=== PATIENT | female | born 1970 | race Caucasian/White ===

== ENCOUNTER 2016-04-16 16:20 | Emergency (ER) | payer MEDICARE | END 2016-04-16 19:18 | disposition home or self-care (01) | LOC: ER 16:20 | DX: S20.112A Abrasion of breast, left breast, initial encounter (principal); N61.0 Mastitis without abscess; L08.9 Local infection of the skin and subcutaneous tissue, unspecified; E11.9 Type 2 diabetes mellitus without complications; F31.9 Bipolar disorder, unspecified; Z86.14 Personal history of Methicillin resistant Staphylococcus aureus infection; F17.210 Nicotine dependence, cigarettes, uncomplicated; Z79.899 Other long term (current) drug therapy | CPT/HCPCS: 99282 ==

== ENCOUNTER 2016-04-28 17:12 | Emergency (ER) | payer MEDICARE ==
[2016-04-28 17:42] LABS: BASO % 0.4 % (0.1-1.2); EOS # 0.2 10_X3_uL (0.0-0.4); GRAN # 4.4 10_X3_uL (1.6-6.1); GRAN % 38.7 % (34.0-71.1); HEMATOCRIT 42.2 % (34-45); HEMOGLOBIN 14.1 g/dL (11.2-15.7); LYMPH # 5.9 10_X3_uL (1.2-3.7); LYMPH % 52.3 % (19.3-51.7); MEAN CORPUSCULAR HGB CONC 33.4 g/dL (32.0-36.0); MEAN CORPUSCULAR VOLUME 95.9 fL (79-95); MEAN PLATELET VOLUME 9.8 fl (7.5-11.5); MONO # 0.8 10_X3_uL (0.2-0.9); MONO % 6.6 % (4.7-12.5); PLATELET COUNT 336 x10_3/uL (182-369); RED CELL DISTRIBUTION WIDTH 12.5 % (11.7-14.4); WHITE BLOOD COUNT 11.3 x10_3/uL (4.0-10.0)
[2016-04-28 18:01] LABS: ALBUMIN 3.7 gm/dL (3.4-5.0); ALKALINE PHOSPHATASE 51 U/L (50-136); ALT/SGPT 26 U/L (3.5-33.9); AST/SGOT 17 U/L (7.04-26.96); BLOOD UREA NITROGEN 6 mg/dL (7-18); CALCIUM 8.9 mg/dL (8.7-10.7); CARBON DIOXIDE 23 mmol/L (21-32); CREATINE KINASE 35 U/L (21-215); CREATININE < 0.5 mg/dL (0.6-1.3); GLUCOSE,RANDOM 154 mg/dL (70-99); POTASSIUM 4.3 mmol/L (3.5-5.1); SODIUM 137 mmol/L (136-145); TOTAL PROTEIN 6.9 gm/dL (6.4-8.2)
[2016-04-28 18:11] LABS: BILIRUBIN,TOTAL < 0.15 mg/dL (0.0-1.0)
== END 2016-04-28 19:20 | disposition home or self-care (01) ==
LOC: ER 17:12
PROVIDERS: Internal Medicine
DX: R07.89 Other chest pain (principal); F41.9 Anxiety disorder, unspecified; F32.9 Major depressive disorder, single episode, unspecified; I34.1 Nonrheumatic mitral (valve) prolapse; Z79.899 Other long term (current) drug therapy
CPT/HCPCS: 36415; 71010; 80053; 82550; 82553; 85025; 93005; 96374; 99283-25

== ENCOUNTER 2016-05-21 17:18 | Emergency (ER) | payer MEDICARE | END 2016-05-21 19:21 | disposition home or self-care (01) | LOC: ER 17:18 | DX: F41.9 Anxiety disorder, unspecified (principal); F20.9 Schizophrenia, unspecified; E11.9 Type 2 diabetes mellitus without complications; F31.9 Bipolar disorder, unspecified; F17.210 Nicotine dependence, cigarettes, uncomplicated; Z79.84 Long term (current) use of oral hypoglycemic drugs; Z79.899 Other long term (current) drug therapy | CPT/HCPCS: 99282 ==

== ENCOUNTER 2016-06-18 19:09 | Emergency (ER) | payer MEDICARE ==
[2016-06-18 19:38] LABS: BASO % 0.1 % (0.1-1.2); EOS # 0.2 10_X3_uL (0.0-0.4); EOS % 1.7 % (0.7-5.8); GRAN # 4.8 10_X3_uL (1.6-6.1); GRAN % 55.9 % (34.0-71.1); HEMOGLOBIN 14.3 g/dL (11.2-15.7); LYMPH # 2.7 10_X3_uL (1.2-3.7); LYMPH % 31.5 % (19.3-51.7); MEAN CORPUSCULAR HEMOGLOBIN 30.9 pg (27.0-33.0); MEAN CORPUSCULAR HGB CONC 33.3 g/dL (32.0-36.0); MEAN CORPUSCULAR VOLUME 92.9 fL (79-95); MEAN PLATELET VOLUME 10.4 fl (7.5-11.5); MONO # 0.9 10_X3_uL (0.2-0.9); MONO % 10.8 % (4.7-12.5); PLATELET COUNT 204 x10_3/uL (182-369); RED BLOOD COUNT 4.63 x10_6/uL (3.9-5.2); WHITE BLOOD COUNT 8.6 x10_3/uL (4.0-10.0)
[2016-06-18 20:00] LABS: ALBUMIN 4.1 gm/dL (3.4-5.0); ALKALINE PHOSPHATASE 67 U/L (50-136); ALT/SGPT 122 U/L (3.5-33.9); POTASSIUM 4.1 mmol/L (3.5-5.1); SODIUM 139 mmol/L (136-145)
[2016-06-18 20:12] LABS: AST/SGOT 168 U/L (7.04-26.96); BILIRUBIN,TOTAL 0.31 mg/dL (0.0-1.0); BLOOD UREA NITROGEN 16 mg/dL (7-18); CALCIUM 8.4 mg/dL (8.7-10.7); CARBON DIOXIDE 11 mmol/L (21-32); CREATININE 1.2 mg/dL (0.6-1.3); GLUCOSE,RANDOM 103 mg/dL (70-99); TOTAL PROTEIN 7.5 gm/dL (6.4-8.2)
[2016-06-18 20:15] LABS: ACETAMINOPHEN < 15.0 ug/ml (10.0-30.0)
== END 2016-06-18 22:14 | disposition home or self-care (01) ==
LOC: ER 19:09
PROVIDERS: Emergency Medicine
DX: F15.20 Other stimulant dependence, uncomplicated (principal); R94.5 Abnormal results of liver function studies; E11.9 Type 2 diabetes mellitus without complications; F41.9 Anxiety disorder, unspecified; F32.9 Major depressive disorder, single episode, unspecified; F17.210 Nicotine dependence, cigarettes, uncomplicated; Z79.899 Other long term (current) drug therapy; Z79.84 Long term (current) use of oral hypoglycemic drugs
CPT/HCPCS: 36415; 80053; 80307; 81025; 82962; 85025; 93005; 99070; 99284-25; G0480

== ENCOUNTER 2016-06-25 15:33 | Emergency (ER) | payer MEDICARE | END 2016-06-25 18:30 | disposition home or self-care (01) | LOC: ER 15:33 | DX: F41.0 Panic disorder [episodic paroxysmal anxiety] (principal); Z79.899 Other long term (current) drug therapy; F17.210 Nicotine dependence, cigarettes, uncomplicated | CPT/HCPCS: 96372; 99282-25 ==

== ENCOUNTER 2016-08-05 11:00 | Emergency (ER) | payer MEDICARE ==
[2016-08-05 11:36] LABS: BASO # 0.1 10_X3_uL (0.0-0.1); BASO % 0.6 % (0.1-1.2); EOS # 0.2 10_X3_uL (0.0-0.4); EOS % 1.4 % (0.7-5.8); GRAN # 10.4 10_X3_uL (1.6-6.1); GRAN % 70.5 % (34.0-71.1); HEMATOCRIT 35.6 % (34-45); HEMOGLOBIN 12.6 g/dL (11.2-15.7); LYMPH % 20.5 % (19.3-51.7); MEAN CORPUSCULAR HEMOGLOBIN 31.4 pg (27.0-33.0); MEAN CORPUSCULAR HGB CONC 35.4 g/dL (32.0-36.0); MEAN CORPUSCULAR VOLUME 88.8 fL (79-95); MEAN PLATELET VOLUME 10.3 fl (7.5-11.5); PLATELET COUNT 402 x10_3/uL (182-369); RED BLOOD COUNT 4.01 x10_6/uL (3.9-5.2); RED CELL DISTRIBUTION WIDTH 12.9 % (11.7-14.4); WHITE BLOOD COUNT 14.8 x10_3/uL (4.0-10.0)
[2016-08-05 11:48] LABS: ACETAMINOPHEN < 15.0 ug/ml (10.0-30.0); ALBUMIN 3.4 gm/dL (3.4-5.0); ALKALINE PHOSPHATASE 58 U/L (50-136); ALT/SGPT 85 U/L (3.5-33.9); AST/SGOT 87 U/L (7.04-26.96); BILIRUBIN,TOTAL 0.87 mg/dL (0.0-1.0); BLOOD UREA NITROGEN 9 mg/dL (7-18); CALCIUM 9.2 mg/dL (8.7-10.7); CARBON DIOXIDE 20 mmol/L (21-32); CREATININE 0.6 mg/dL (0.6-1.3); ETHYL ALCOHOL < 10 mg/dl; GLUCOSE,RANDOM 162 mg/dL (70-99); POTASSIUM 3.3 mmol/L (3.5-5.1); SODIUM 126 mmol/L (136-145); TOTAL PROTEIN 8.2 gm/dL (6.4-8.2)
== END 2016-08-05 19:48 | disposition short-term general hospital (02) ==
LOC: ER 11:00
PROVIDERS: Internal Medicine
DX: F32.9 Major depressive disorder, single episode, unspecified (principal); R45.851 Suicidal ideations; E87.1 Hypo-osmolality and hyponatremia; E11.9 Type 2 diabetes mellitus without complications; F17.210 Nicotine dependence, cigarettes, uncomplicated; Z79.84 Long term (current) use of oral hypoglycemic drugs; Z79.899 Other long term (current) drug therapy
CPT/HCPCS: 36415; 80053; 80307; 85025; 96360; 96361; 99070; 99285-25; G0480